=== PATIENT | male | born 1990 | race African-American/Black ===

== ENCOUNTER 2017-03-30 14:25 | Emergency (ER) | payer SELFPAY ==
[~2017-03-30] VITALS: Ht 190.5 cm; Wt 101.3 kg
[~2017-03-30 14:25] MED LIST: NAPROSYN500 MG PO; ULTRAM50 MG PO
[2017-03-30 15:15] LABS: HEMATOCRIT 46.2 % (38.0-50.0); HEMOGLOBIN 15.8 G/DL (12.5-16.6); MCH 30.9 PG (29.0-34.0); MCHC 34.2 G/DL (30.0-36.0); MCV 90.4 FL (86-99); PLATELET COUNT 281 K/uL (156-360); RBC DIS.WIDTH-CV 12.6 % (11.8-14.6); RBC DIS.WIDTH-SD 41.3 % (39-53); RED BLOOD COUNT 5.11 M/uL (4.00-5.50)
[2017-03-30 15:38] LABS: ALBUMIN 4.8 G/DL (3.2-4.8); CHLORIDE 103 MEQ/L (99-109); SODIUM 140 MEQ/L (136-147); TOTAL BILIRUBIN 0.5 MG/DL (0.0-1.0)
[2017-03-30 15:44] LABS: ALKALINE PHOSPHATASE 104 IU/L (3-129); ALT (GPT) 19 IU/L (3-49); AST (GOT) 19 IU/L (2-34); CREATININE 0.9 MG/DL (0.6-1.3); GFR ESTIMATE (CALCULATED) > 59 mL/min/ (58.99-99999); GLUCOSE 121 mg/dL (70-99); TOTAL PROTEIN 8.3 G/DL (6.4-8.3); UREA NITROGEN (BUN) 14 mg/dL (9-23)
[2017-03-30 17:14] LABS: LIPASE 13 U/L (1.0-51.0)
[2017-03-30] MEDS ORDERED: ZOFRAN4 MG SL (19:06)
[2017-03-30 19:26] VITALS: BP 164/98
== END 2017-03-30 19:31 | disposition home or self-care (01) ==
LOC: EME 14:25
DX: K29.20 Alcoholic gastritis without bleeding (principal); Z87.891 Personal history of nicotine dependence; Z88.0 Allergy status to penicillin; Z88.8 Allergy status to other drugs, medicaments and biological substances
CPT/HCPCS: 80053; 81003; 83690; 85027; 87493; 99281; 99285; J2270; J2405; J2765; J7030; S0028